=== PATIENT | female | born 1990 ===

== ENCOUNTER 2018-04-18 16:30 | Emergency (ER) | payer MEDICAID, OTHER ==
[2018-04-18 16:45] VITALS: BP 124/76; PULSE 93; RESP 18; TEMP 98.2; O2SAT 100
--- NOTE | 2018-04-18 17:37 | C.PDOC ---
History Of Present Illness 28 y/o female, with no history of diabetes, presents to ER with complaints of pain and swelling to lateral left thigh that started as a pimple. Patient states she squeezed it and has been red since. States it is hot, tender, and swollen. Denies fever, numbness, or weakness. Time Seen by Provider: 04/18/18 16:44 Chief Complaint (Nursing): Lower Extremity Problem/Injury History Per: Patient History/Exam Limitations: no limitations Onset/Duration Of Symptoms: Days Current Symptoms Are (Timing): Still Present Past Medical History Reviewed: Historical Data, Nursing Documentation, Vital Signs Vital Signs: Last Vital Signs Temp 98.2 F 04/18/18 16:35 Pulse 93 H 04/18/18 16:35 Resp 18 04/18/18 16:35 BP 124/76 04/18/18 16:35 Pulse Ox 100 04/18/18 16:35 - Medical History PMH: Anemia, Anxiety, Bipolar Disorder, Depression, Schizophrenia Denies: Diabetes, Hepatitis, HIV, HTN, Seizures, Sexually Transmitted Disease - [facility] Procedures MONITORING NOS (12/15/14) MANUAL ASSIST DELIV NEC (12/15/14) Family History: States: No Known Family Hx - Social History Hx Tobacco Use: Yes Hx Alcohol Use: Yes Hx Substance Use: Yes - Immunization History Hx Tetanus Toxoid Vaccination: No Hx Influenza Vaccination: No Hx Pneumococcal Vaccination: No Review Of Systems Constitutional: Negative for: Fever, Chills Cardiovascular: Negative for: Chest Pain Respiratory: Negative for: Shortness of Breath Musculoskeletal: Positive for: Other (Left lateral thigh pain) Neurological: Negative for: Weakness, Numbness Physical Exam - Physical Exam Appears: Non-toxic, No Acute Distress Skin: Warm, Dry, Other (3cm wide and round size erythema with induration in middle of left lateral upper thigh; firm, not fluctuant, with tiny spot of pus) Head: Atraumatic, Normacephalic Eye(s): bilateral: Normal Inspection Oral Mucosa: Moist Cardiovascular: Rhythm Regular, No Murmur Respiratory: Normal Breath Sounds, No Rales, No Rhonchi, No Wheezing Extremity: Bilateral: Normal Color And Temperature, Normal ROM Neurological/Psych: Oriented x3, Normal Speech ED Course And Treatment O2 Sat by Pulse Oximetry: 100 (RA) Pulse Ox Interpretation: Normal Medical Decision Making Medical Decision Making: Impression: Left Thigh Pain Plan: --Ibuprofen indsurated area with central area with one drop pus, not flucutuant; d/c with bactrim. warm compresses. f/u wound check 2 days Disposition Counseled Patient/Family Regarding: Studies Performed, Diagnosis, Need For Followup, Rx Given - Disposition Referrals: [facility] [Outside] Disposition: HOME/ ROUTINE Disposition Time: 18:01 Condition: GOOD Additional Instructions: Take antibiotics until completed. Warm compresses to left thigh 4 times a day for 15-20 min at a times. Ibuprofen for pain. Return to ER in 2 days for wound check; return sooner if redness spreads past line drawn on skin, you get fever or other concerns. Prescriptions: Ibuprofen [Ibu] 400 mg PO Q4 #30 tablet Sulfamethoxazole/Trimethoprim [Bactrim 400-80 mg Tablet] 1 each PO BID #14 tablet Instructions: Boil (DC) Forms: [facility] (Pashto), General Discharge Instructions - Clinical Impression Clinical Impression: Abscess of left thigh - PA / CHEMICAL ETCHING PROCESSOR / Resident Statement MD/DO has reviewed & agrees with the documentation as recorded. - Scribe Statement The provider has reviewed the documentation as recorded by the Scribe Mariposa Mcfarland All medical record entries made by the Dilip were at my direction and personally dictated by me. I have reviewed the chart and agree that the record accurately reflects my personal performance of the history, physical exam, medical decision making, and the department course for this patient. I have also personally directed, reviewed, and agree with the discharge instructions and disposition.
[2018-04-18] MEDS ORDERED: Tmp-Smz 800 mg-160 mg DS Tab PO STA (17:58)
[2018-04-18] MEDS ORDERED: Tmp-Smz 800 mg-160 mg DS Tab ONE (18:03)
== END 2018-04-18 18:10 | disposition home or self-care (01) ==
LOC: C.ER 16:30
DX: L02.416 Cutaneous abscess of left lower limb (principal)

== ENCOUNTER 2018-05-15 18:02 | Emergency (ER) | payer MEDICAID ==
[2018-05-15 18:13] VITALS: BP 119/75; PULSE 88; RESP 18; TEMP 98.3; O2SAT 98
--- NOTE | 2018-05-15 19:51 | C.PDOC ---
History Of Present Illness 28 y/o female, with PMHx of bronchitis, presents to ED complaining of a productive cough and congestion for the past 3 days. Patient states she has been using a nebulizer and inhaler without improvement. She notes the pain is similar to previous symptoms when she had bronchitis and requests chest x-ray done. Otherwise she denies fever, chest pain, headache, neck pain, abdominal pain, throat swelling, or sore throat. Time Seen by Provider: 05/15/18 18:21 Chief Complaint (Nursing): Cough, Cold, Congestion History Per: Patient History/Exam Limitations: no limitations Onset/Duration Of Symptoms: Days Current Symptoms Are (Timing): Still Present Past Medical History Reviewed: Historical Data, Nursing Documentation, Vital Signs Vital Signs: Last Vital Signs Temp 98.3 F 05/15/18 18:10 Pulse 88 05/15/18 18:10 Resp 18 05/15/18 18:10 BP 119/75 05/15/18 18:10 Pulse Ox 98 05/15/18 18:10 - Medical History PMH: Anemia, Anxiety, Bipolar Disorder, Depression, Schizophrenia Denies: Diabetes, Hepatitis, HIV, HTN, Seizures, Sexually Transmitted Disease - [facility] Procedures MONITORING NOS (12/15/14) MANUAL ASSIST DELIV NEC (12/15/14) Family History: States: No Known Family Hx - Social History Hx Tobacco Use: Yes Hx Alcohol Use: Yes Hx Substance Use: Yes - Immunization History Hx Tetanus Toxoid Vaccination: No Hx Influenza Vaccination: No Hx Pneumococcal Vaccination: No Review Of Systems Except As Marked, All Systems Reviewed And Found Negative. ENT: Positive for: Nose Congestion. Negative for: Throat Pain, Throat Swelling Cardiovascular: Negative for: Chest Pain Respiratory: Positive for: Cough. Negative for: Shortness of Breath Gastrointestinal: Negative for: Abdominal Pain Musculoskeletal: Negative for: Neck Pain Neurological: Negative for: Weakness, Numbness Physical Exam - Physical Exam Appears: Non-toxic, No Acute Distress Skin: Warm, Dry Head: Atraumatic, Normacephalic Eye(s): bilateral: Normal Inspection, EOMI Nose: Normal Oral Mucosa: Moist Throat: No Erythema, No Exudate Neck: Normal ROM, Supple Chest: Symmetrical Cardiovascular: Rhythm Regular Respiratory: Normal Breath Sounds, No Rales, No Rhonchi, No Wheezing, Other (occasional cough) Extremity: Bilateral: Atraumatic, Normal Color And Temperature, Normal ROM Neurological/Psych: Oriented x3, Normal Speech ED Course And Treatment O2 Sat by Pulse Oximetry: 98 (RA) Pulse Ox Interpretation: Normal Progress Note: Chest x-ray ordered. Pt requesting to call patient rep and contact centre supervisor in regards to their placement in ED after 11 min of being in the ED. While waiting for the CXR, pt began screaming profanity and threatening employees. Pt was very aggressive , in addition to name calling pt states that she will "meet you outside." PT showed no evidence of sob or difficulty speaking. Pt was escorted out. Disposition - Disposition Disposition: ELOPEMENT - ER ONLY Disposition Time: 20:00 Condition: STABLE Forms: [facility] (Zambian) - Clinical Impression Clinical Impression: Upper respiratory infection - PA / SALES CORRESPONDENT / Resident Statement MD/DO has reviewed & agrees with the documentation as recorded. - Scribe Statement The provider has reviewed the documentation as recorded by the Scribe Mariposa Mcfarland All medical record entries made by the Scribe were at my direction and personally dictated by me. I have reviewed the chart and agree that the record accurately reflects my personal performance of the history, physical exam, medical decision making, and the department course for this patient. I have also personally directed, reviewed, and agree with the discharge instructions and disposition.
== END 2018-05-15 19:30 | disposition left against medical advice (07) ==
LOC: C.ER 18:02
DX: J06.9 Acute upper respiratory infection, unspecified (principal)

== ENCOUNTER 2018-07-06 15:52 | Emergency (ER) | payer MEDICAID, OTHER ==
[2018-07-06 16:03] VITALS: BP 115/82; PULSE 94; RESP 22; TEMP 98.2; O2SAT 96
--- NOTE | 2018-07-06 16:44 | C.PDOC ---
History Of Present Illness 28 year old female, whose past medical history includes heroin abuse, presents to the ED requesting heroin detox. Patient states her last use was yesterday. She states she is going through withdrawal and is asking for detox. Patient denies suicidal/homicidal ideation at this time. Time Seen by Provider: 07/06/18 16:20 Chief Complaint (Nursing): Substance Abuse History Per: Patient History/Exam Limitations: no limitations Onset/Duration Of Symptoms: Hrs Current Symptoms Are (Timing): Still Present Suicide/Self Injury Attempted (Context): None Modifying Factor(s): Other (heroin) Associated Symptoms: denies: Suicidal Thoughts, Suicidal Plan Involuntary Hold By: None Recent travel outside of the [place]: No Additional History Per: Patient Past Medical History Reviewed: Historical Data, Nursing Documentation, Vital Signs Vital Signs: Last Vital Signs Temp 98.2 F 07/06/18 16:00 Pulse 94 H 07/06/18 16:00 Resp 22 07/06/18 16:00 BP 115/82 07/06/18 16:00 Pulse Ox 96 07/06/18 16:00 - Medical History PMH: Anemia, Anxiety, Bipolar Disorder, Depression, Schizophrenia Denies: Asthma, Diabetes, Hepatitis, HIV, HTN, Seizures, Sexually Transmitted Disease Surgical History: No Surg Hx - [facility] Procedures MONITORING NOS (12/15/14) MANUAL ASSIST DELIV NEC (12/15/14) Family History: States: Unknown Family Hx - Social History Hx Tobacco Use: Yes Hx Alcohol Use: Yes Hx Substance Use: Yes - Immunization History Hx Tetanus Toxoid Vaccination: No Hx Influenza Vaccination: No Hx Pneumococcal Vaccination: No Review Of Systems Psych: Positive for: Withdrawal, Other (heroin detox ). Negative for: Suicidal ideation Physical Exam - Physical Exam Appears: Non-toxic, No Acute Distress Skin: Normal Color, Warm, Dry Head: Atraumatic, Normacephalic Eye(s): bilateral: Normal Inspection Oral Mucosa: Moist Neck: Supple Chest: Symmetrical, No Deformity, No Tenderness Cardiovascular: Rhythm Regular, No Murmur Respiratory: Normal Breath Sounds, No Rales, No Rhonchi, No Wheezing Extremity: Normal ROM, Capillary Refill (less than 2 seconds ) Neurological/Psych: Oriented x3, Normal Speech, Normal Cognition ED Course And Treatment O2 Sat by Pulse Oximetry: 96 (on RA ) Pulse Ox Interpretation: Normal Medical Decision Making Medical Decision Making: Impression: 28 year old female requesting heroin detox Progress: Patient was evaluated by brush worker and informed that there are no detox beds available at this time. Patient is now verbalizing suicidal ideation. hide and skin processing worker informed patient that in order for her to be evaluated for s uicidal ideation, she will have to be from her partner (who is currently with her at bedside). Patient then denies suicidal/homicidal ideation and is requesting to be discharged. On reassessment, patient is resting comfortably, showing no signs of distress and is stable for discharge. Patient will be placed on waiting list and given additional phone numbers for further inquiry. Disposition Counseled Patient/Family Regarding: Diagnosis, Need For Followup - Disposition Referrals: [facility] [Outside] [facility] [Outside] Disposition: HOME/ ROUTINE Disposition Time: 16:42 Condition: STABLE Additional Instructions: FLORIDALMA AUGUSTE, thank you for letting us take care of you today. Your provider was Pat Kingsley MD and you were treated for PSYCHE EVALUATION. The emergency medical care you received today was directed at your acute symptoms. If you were prescribed any medication, please fill it and take as directed. It may take several days for your symptoms to resolve. Return to the Emergency Department if your symptoms worsen, do not improve, or if you have any other problems. Please call one of the physicians/clinics you have been referred to that are listed on the Patient Visit Information form that is included in your discharge packet. Bring any paperwork you were given at discharge with you along with any medications you are taking to your follow up visit. Our treatment cannot replace ongoing medical care by a primary care provider outside of the emergency department. Thank you for allowing the [facility] team to be part of your care today. Instructions: Drug Abuse and Drug Addiction (DC), Opioid Use Disorder Forms: [facility] (Upper Sorbian), General Discharge Instructions - POA Present On Arrival: None - Clinical Impression Clinical Impression: Heroin abuse - Scribe Statement The provider has reviewed the documentation as recorded by the Scribe (Trinity Denise) Provider Attestation: All medical record entries made by the Scribe were at my direction and personally dictated by me. I have reviewed the chart and agree that the record accurately reflects my personal performance of the history, physical exam, medical decision making, and the department course for this patient. I have also personally directed, reviewed, and agree with the discharge instructions and disposition.
== END 2018-07-06 17:04 | disposition home or self-care (01) ==
LOC: C.ER 15:52
DX: F11.10 Opioid abuse, uncomplicated (principal); F20.9 Schizophrenia, unspecified; Z72.0 Tobacco use

== ENCOUNTER 2018-07-21 21:11 | Inpatient (IN) | payer OTHER ==
--- NOTE | 2018-07-21 21:51 | C.PDOC ---
History Of Present Illness The patient presents to the ED requesting heroin detox. Patient states her last use was this afternoon. She denies suicidal/homicidal ideation at this time. Time Seen by Provider: 07/21/18 21:51 Chief Complaint (Nursing): Substance Abuse History Per: Patient History/Exam Limitations: no limitations Onset/Duration Of Symptoms: Hrs Current Symptoms Are (Timing): Still Present Suicide/Self Injury Attempted (Context): None Modifying Factor(s): Other (heroin) Severity: None Pain Scale Rating Of: 0 Associated Symptoms: denies: Suicidal Thoughts, Suicidal Plan Involuntary Hold By: None Recent travel outside of the [place]: No Additional History Per: Patient Past Medical History Reviewed: Historical Data, Nursing Documentation, Vital Signs Vital Signs: Last Vital Signs Temp 98 F 07/21/18 21:27 Pulse 74 07/21/18 21:27 Resp 20 07/21/18 21:27 BP 111/78 07/21/18 21:27 Pulse Ox 98 07/21/18 21:27 - Medical History PMH: Anemia, Anxiety, Bipolar Disorder, Depression, Schizophrenia Denies: Asthma, Diabetes, Hepatitis, HIV, HTN, Seizures, Sexually Transmitted Disease Surgical History: No Surg Hx - [facility] Procedures MONITORING NOS (12/15/14) MANUAL ASSIST DELIV NEC (12/15/14) Family History: States: Unknown Family Hx - Social History Hx Tobacco Use: Yes Hx Alcohol Use: Yes Hx Substance Use: Yes - Immunization History Hx Tetanus Toxoid Vaccination: No Hx Influenza Vaccination: No Hx Pneumococcal Vaccination: No Review Of Systems Constitutional: Negative for: Fever, Chills Cardiovascular: Negative for: Chest Pain, Palpitations Respiratory: Negative for: Cough, Shortness of Breath Gastrointestinal: Negative for: Nausea, Vomiting, Abdominal Pain, Diarrhea Skin: Negative for: Rash, Lesions, Jaundice, Bruising Psych: Positive for: Other (heroin detox ). Negative for: Suicidal ideation Physical Exam - Physical Exam Appears: Non-toxic, No Acute Distress Skin: Warm, Dry Head: Normacephalic Eye(s): bilateral: Normal Inspection Oral Mucosa: Moist Neck: Supple Chest: Symmetrical, No Deformity Respiratory: No Accessory Muscle Use Extremity: Normal ROM Neurological/Psych: Oriented x3 ED Course And Treatment - Laboratory Results Result Diagrams: 07/21/18 22:12 07/21/18 22:12 O2 Sat by Pulse Oximetry: 98 (on RA) Pulse Ox Interpretation: Normal Progress Note: Bloodwork and urinalysis ordered. Disposition Discussed With Dr.: Eva Watters Comment: accepted the pt on h er service and took over the care at 2:21 AM Doctor Will See Patient In The: Hospital Counseled Patient/Family Regarding: Studies Performed, Diagnosis - Disposition Disposition: HOSPITALIZED Disposition Time: 21:51 Condition: FAIR Forms: [facility] (Costa Rican) - POA Present On Arrival: None - Clinical Impression Clinical Impression: Drug abuse, Drug dependence - Scribe Statement The provider has reviewed the documentation as recorded by the Scribe (Trinity Denise) Provider Attestation: All medical record entries made by the Scribe were at my direction and personally dictated by me. I have reviewed the chart and agree that the record accurately reflects my personal performance of the history, physical exam, medical decision making, and the department course for this patient. I have also personally directed, reviewed, and agree with the discharge instructions and disposition. Decision To Admit - Pt Status Changed To: Hospital Disposition Of: Inpatient - Admit Certification Admit to Inpatient:: After my assessment, the patient will require hospitalization for at least two midnights. This is because of the severity of symptoms shown, intensity of services needed, and/or the medical risk in this patient being treated as an outpatient. - InPatient: Physician Admission Certification: I certify that this patient requires 2 or mor e midnights of care for the following reason:: After my assessment, the patient will require hospitalization for at least two midnights. This is because of the severity of symptoms shown, intensity of services needed, and/or the medical risk in this patient being treated as an outpatient. - . Bed Request Type: Detox Admitting Physician: Eva Watters Patient Diagnosis: Drug abuse, Drug dependence
[2018-07-21 22:16] LABS: BASO # 0.1 K/uL (0.0-0.2); BASO % 0.8 % (0.0-2.0); EOS # 0.2 K/uL (0.0-0.7); EOS % 2.3 % (0.0-4.0); HEMOGLOBIN 13.2 g/dL (11.0-16.0); LYMPH # 1.4 K/uL (1.0-4.3); LYMPH % 20.3 % (20.0-40.0); MEAN CORPUSCULAR HEMOGLOBIN 29.9 pg (27.0-31.0); MEAN CORPUSCULAR HGB CONC 33.1 g/dL (33.0-37.0); MEAN PLATELET VOLUME 7.6 fL (7.2-11.7); MONO # 0.6 K/uL (0.0-0.8); MONO % 8.8 % (0.0-10.0); NEUT # 4.8 K/uL (1.8-7.0); NEUT % 67.8 % (50.0-75.0); NRBC % 0.1 % (0.0-2.0); RBC 4.42 Mil/uL (3.80-5.20); RED CELL DISTRIBUTION WIDTH 13.6 % (11.5-14.5)
[2018-07-21 22:21] LABS: HCG,QUALITATIVE URINE NEGATIVE (NEGATIVE)
[2018-07-21 22:24] LABS: MEAN CELL VOLUME 90.3 fL (81.0-99.0)
[2018-07-21 22:33] LABS: SQUAMOUS EPITHIAL 1 /hpf (0-5); URINE AMORPHOUS SEDIMENT OCC /ul (<OCC); URINE BILIRUBIN NEGATIVE (NEGATIVE); URINE BLOOD NEGATIVE (NEGATIVE); URINE CLARITY Hazy (Clear); URINE COLOR Yellow (YELLOW); URINE GLUCOSE (UA) NORMAL (Normal); URINE LEUKOCYTE ESTERASE TRACE Leu/uL (Negative); URINE PROTEIN NEGATIVE (NEGATIVE); URINE UROBILINOGEN NORMAL mg/dL (0.2-1.0)
[2018-07-21 22:40] LABS: BARBITURATES, UR NEGATIVE (NEGATIVE); BENZODIAZEPINES, UR NEGATIVE (NEGATIVE); PHENCYCLIDINE, UR NEGATIVE (NEGATIVE)
[2018-07-21 22:41] LABS: OPIATES, UR POSITIVE (NEGATIVE)
[2018-07-21 22:44] LABS: ALB/GLOB RATIO 1.2 (1.0-2.1); ALBUMIN 4.3 g/dL (3.5-5.0); ALT/SGPT 37 U/L (9-52); AST/SGOT 50 U/L (14-36); BLOOD UREA NITROGEN 13 mg/dL (7-17); CALCIUM 9.1 mg/dl (8.6-10.4); GFR NON-AFRICAN AMERICAN > 60
--- NOTE | 2018-07-22 09:19 | PCM.BM ---
<Jeny Hammonds - Last Filed: 07/22/18 09:16> Treatment Plan Problems - Problems identified on initial assessmt Defensive Coping Date Initiated: 07/22/18 Assessment reference: NA Status: Active Abnormal Vital Signs Date Initiated: 07/22/18 Assessment reference: NA Status: Active Low Motivation to Change Date Initiated: 07/22/18 Assessment reference: NA Status: Active Treatment assets and liabiliti Patient Assests: adapts well, cooperative, ADL independent, negotiates basic needs Patient Liabilities: financial problems, substance abuse - Milieu Protocol Maintain good personal hygiene: daily Encourage regular showers, daily Remind patient to perform daily oral care, daily Assist patient to perform ADL's Conduct patient checks and document Observation sheet: Q15 minutes Maintain personal safety: every shift Educate patient to report safety concerns to staff, every shift Monitor environment for contraband/sharps Medication safety: Monitor for expected outcome, potential side effects: every shift, Assess barriers to learning: every shift, Assess readiness for medication education: every shift <Danielle Coto - Last Filed: 07/23/18 14:26> Family Contact Family involvement: Famliy/SO not involved - Goals for Treatment Patient goals for treatment: Complete detox and transition to an outpatient program. Discharge/Continuing Care - Education Needs Education Needs: Patient Medication, Patient Diagnosis/Disease Process, Patient Coping Skills, Patient Anger Management skills, Patient Placement options, Patient Community resources - Discharge Discharge Criteria: Free of agitation, Normal sleep pattern, Ability to care for self, No longer exhibiting s/s of withdrawal, Reduction of target symptoms Discharge to:: Home, With Family - Treatment Team Participation Patient/Family/SO Statement: 07/23/18 14:26 "I'll do outpatient..."
--- NOTE | 2018-07-22 11:37 | PCM.PSYCH ---
Initial Psychiatric Evaluation - Initial Psychiatric Evaluation Type of Admission: Voluntary Legal Status: Capacity Chief Complaint (in patient's own words): I need help in detox.' History of Present Illness and Precipitating Events: Patient is a 28 years old CF, who came to [facility] ED to get help in heroin detox. Patient reports a long history of abusing alcohol and cocaine. She reports that she has been abusing increasing amount of heroin since age of 26. She reports of injecting 4-6 bags of heroin daily along with 2 bags of cocaine. Her last abuse was yesterday. She denies any past history of any inpatient inpatient psychiatric hospitalizations and denies any past history of follow-up with any psychiatrist. Reports history of few detoxes in the past. She reports withdrawal symptoms including nausea, cramps, headaches, anxiety, sweating and shakes. She reports irritable mood but she denies any feelings of hopelessness or helplessness. She denies any suicidal ideation or any suicidal ideation. She denies any auditory or visual hallucinations or any paranoia. She denies any other substance abuse. Past medical history None reported Past Psychiatric History - Past Psychiatric History Previous Treatment History: None Pertinent Medical Hx (Current Medical&Sleep Prob, Allergies): Allergies Allergy/AdvReac Type Severity Reaction Status Date / Time No Known Allergies Allergy Verified 07/21/18 21:31 No Known Home Med 07/21/18 Review of Systems - Review of Systems All systems: reviewed and no additional remarkable complaints except - Psychiatric Psychiatric: Anxiety, Irritability. absent: Suicidal Ideation Mental Status Examination - Personal Presentation Personal Presentation: Looks stated age - Affect Affect: Constricted - Motor Activity Motor Activity: Calm - Reliability in Providing Information Reliability in Providing Information: Fair - Speech Speech: Organized - Mood Mood: Anxious - Formal Thought Process Formal Thought Process: No Impairment - Obsessions/Compulsions Obsessions: No Compulsions: No - Cognitive Functions Orientation: Person, Place, Situation, Time Sensorium: Alert Attention/Concentration: Attentive Abstract Thinking: [place] Estimate of Intelligence: Below average Judgement: Imparied, as evidence by: Poor judgement, Intact, as evidence by: Insight regarding need for hospitalization - Risk Risk: Withdrawal, Diminished functioning - Limitations Limitations: Living alone DSM 5 DX - DSM 5 DSM 5 Diagnosis: Opioid use disorder severe Opioid withdrawal Cocaine use disorder severe Alcohol use disorder moderate Major depressive disorder recurrent moderate - Recommended/Plan of Treatment Treatment Recommendations and Plan of Treatment: Opioid use disorder severe Opioid withdrawal Cocaine use disorder severe Alcohol use disorder moderate Major depressive disorder recurrent moderate CBT Psychoeducation Supportive therapy and group therapy Methadone/Subutex taper Detox medications Trazodone 50 mg p.o. nightly Neurontin 100 mg p.o. 3 times daily - Smoking Cessation Smoking Cessation Initiated: No
[2018-07-22] MEDS ORDERED: Aluminum Hydroxide/Magnesium Hydroxide Susp (30 mL) PO PRN (15:12)
--- NOTE | 2018-07-23 16:19 | PCM.PYCHPN ---
Psychiatric Progress Note - Psychiatric Progress Note Patient seen today, length of contact: 15 minutes Patient Chief Complaint: I am feeling little better with the treatment. Problems Identified/Issues Discussed: Patient seen, chart reviewed, case discussed with the staff. Patient was evaluated with team. Issues related to illness and treatment were discussed with the patient and staff. Reported compliant with treatment with no adverse effects. Tolerating treatment very well. Patient reported feeling little better with the treatment, still has some withdrawal symptoms including body aches, Headache, sweating, sleeping difficulty and anxiety. Mood reported as Anxious. Affect appropriate. Patient was awake, alert and oriented x3. Calm and partially cooperative. Aftercare discussed with the patient. Patient denied any delusions, no auditory or visual hallucinations, no suicidal ideations or homicidal ideations at the time of evaluation. Medical Problems: None reported Diagnostic Results: Reviewed DSM 5 Symptoms Update: Some improvement with treatment. Medication Change: No Medical Record Reviewed: Yes Mental Status Examination - Cognitive Function Orientation: Person, Place, Situation, Time Memory: Intact Attention: WNL Concentration: WNL Association: [facility] Fund of Knowledge: [facility] Decription of patient's judgement and insights: Fair - Mood Mood: Anxious - Affect Affect: Other (Appropriate) - Speech Speech: Appropriate - Formal Thought Process Formal Thought Process: No Impairment Psychotic Thoughts and Behaviors: None - Suicidal Ideation Suicidal Ideation: No - Homicidal Ideation Homicidal Ideation: No Goal/Treatment Plan - Goal/Treatment Plan Need for Continued Stay: Remain at risks for inpatient hospitalization, Discharge may exacerbated symptoms, Severe functional impairment Progress Toward Problem(s) and Goals/Treatment Plan: Some improvement with treatment. Patient education. Supportive therapy. CBT for relapse prevention. VT for abstinence. Continue treatment as before. Estimated Date of D/C: 07/26/18 - Smoking Cessation Smoking Cessation Initiated: Yes
[2018-07-24 13:28] VITALS: RESP 18
[2018-07-24 18:39] VITALS: BP 90/64; PULSE 87; TEMP 98.4; O2SAT 99
== END 2018-07-24 20:21 | disposition left against medical advice (07) | DRG 743 ==
LOC: C.ER 21:11 → C.9E 07-22 02:20 → C.7D 07-22 08:07
PROVIDERS: ADMIT Psychiatry & Neurology Psychiatry; ATTEND Psychiatry & Neurology Psychiatry
DX: F11.23 Opioid dependence with withdrawal (principal); F33.1 Major depressive disorder, recurrent, moderate; F14.20 Cocaine dependence, uncomplicated; F10.20 Alcohol dependence, uncomplicated; Y90.0 Blood alcohol level of less than 20 mg/100 ml